=== PATIENT | male | born 1965 | race Caucasian/White ===

== ENCOUNTER 2020-10-23 19:13 | Emergency (ER) | payer SELFPAY ==
[2020-10-23 19:42] VITALS: BP 169/79; PULSE 61; TEMP 97.8; BMI 24.7
[2020-10-23] MEDS ORDERED: SILVER SULFADIAZINE 1% TOP CREAM 50 GM JAR TP ONE (19:58)
[2020-10-23] MEDS ORDERED: DIPHTH,PERTUSS(ACELL),TET 0.5 ML DISP.SYRIN IM ONE (19:59)
== END 2020-10-23 20:28 | disposition home or self-care (01) ==
LOC: JERFT 19:13
PROC: 3E0234Z Introduction of Serum, Toxoid and Vaccine into Muscle, Percutaneous Approach (ICD-10-PCS; principal; 2020-10-23)
DX: T24.211A Burn of second degree of right thigh, initial encounter (principal)
CPT/HCPCS: 90715; 99284-25